=== PATIENT | male | born 1950 | race African-American/Black ===

== ENCOUNTER 2019-04-10 10:33 | Inpatient (IN) | payer BC ==
[~2019-04-10] VITALS: Ht 190.5 cm; Wt 98.1 kg
[2019-04-10] MEDS ORDERED: LORAZEPAM 1MG TABLET PO ONE (13:45)
[2019-04-10] MEDS ORDERED: SODIUM CHLORIDE 0.9% 1,000 ML IV ONE (13:45)
[2019-04-10 14:27] LABS: HEMATOCRIT. 37.2 % (42.0-52.0); HEMOGLOBIN. 12.4 g/dL (14.0-18.0); MEAN CORPUSCULAR HEMOGLOBIN 30.6 pg (28.0-32.0); MEAN CORPUSCULAR VOLUME 91.6 fL (80.0-94.0); MEAN PLATELET VOLUME 7.8 fl (7.4-10.4); PLATELET 247 x1000/uL (130-400); RED BLOOD CELL COUNT 4.06 mill/uL (4.7-6.1); RED CELL DISTRIBUTION WIDTH 14.3 % (11.6-14.6)
[2019-04-10 14:33] LABS: INR 1.2; PROTHROMBIN TIME 11.9 sec (9.6-11.0)
[2019-04-10 14:35] LABS: CHLORIDE 103 mEq/L (98-107)
[2019-04-10 14:43] LABS: ETHANOL BLOOD < 10 mg/dL
[2019-04-10 15:09] LABS: PLATELET ESTIMATE NORMAL
[2019-04-10 15:43] LABS: CLARITY URINE CLEAR (CLEAR); COLOR URINE YELLOW (YELLOW); KETONES URINE NEGATIVE (NEGATIVE); LEUKOCYTE ESTERASE URINE NEGATIVE (NEGATIVE); NITRITE URINE NEGATIVE (NEGATIVE); OCCULT BLOOD URINE NEGATIVE (NEGATIVE); PH URINE 5.5 (4.5-8.0); PROTEIN URINE NEGATIVE (NEGATIVE); SPECIFIC GRAVITY URINE 1.007 (1.005-1.030)
[2019-04-10 16:02] LABS: *AMPHETAMINES SCREEN URINE NEGATIVE (NEGATIVE); *BARBITURATES SCREEN URINE NEGATIVE (NEGATIVE); *BENZODIAZEPINES SCREEN URINE NEGATIVE (NEGATIVE)
[2019-04-10 16:04] LABS: *COCAINE SCREEN URINE NEGATIVE (NEGATIVE); CANNABINOID URINE SCREEN NEGATIVE (NEGATIVE); METHADONE URINE SCREEN NEGATIVE (NEGATIVE); OPIATES URINE SCREEN NEGATIVE (NEGATIVE); PHENCYCLIDINE URINE SCREEN NEGATIVE (NEGATIVE)
[2019-04-10] MEDS ORDERED: PIPERACILLIN/TAZ 3.375G PREMIX 50 ML IV ONE (17:15)
[2019-04-10 18:35] VITALS: BP 113/73
[2019-04-10 20:00] VITALS: BP 117/79
[2019-04-10] MEDS ORDERED: DOCUSATE SODIUM 100MG CAPSULE PO PRN (20:00)
[2019-04-10] MEDS ORDERED: LORAZEPAM 2MG/ML CPJ IV PRN (20:00)
[2019-04-10 20:08] VITALS: BP 117/73
[2019-04-10] MEDS ORDERED: INFLUENZA VIRUS VACCINE(AFLURIA) 0.5ML SYR IM ONE (20:15)
[2019-04-10] MEDS ORDERED: FAMOTIDINE 20MG TABLET PO SCH (21:00)
[2019-04-10] MEDS ORDERED: ENOXAPARIN 40MG/0.4ML SYR SUBCUT SCH (21:00)
[2019-04-10] MEDS: TAMSULOSIN HCL 0.4MG SR CAPSULE PO SCH (21:05)
[2019-04-10] MEDS: ACETAMINOPHEN 325MG TABLET PO PRN (21:41)
[2019-04-10] MEDS ORDERED: LEVOFLOXACIN 500MG PREMIX 100 ML IV NR (22:00)
[2019-04-10] MEDS ORDERED: FOLIC ACID 1 MG, THIAMINE HCL 100 MG, MVI, ADULT NO.1 10 ML in DEXTROSE 5% WATER 1,000 ML IV NR ×4 (22:00)
[2019-04-11] VITALS: BP 123/68
[2019-04-11 04:15] VITALS: BP 134/87
[2019-04-11 06:58] LABS: CHLORIDE 105 mEq/L (98-107)
[2019-04-11 07:17] LABS: HEMATOCRIT. 37.1 % (42.0-52.0); HEMOGLOBIN. 12.4 g/dL (14.0-18.0); MEAN CORPUSCULAR HEMOGLOBIN 30.3 pg (28.0-32.0); MEAN CORPUSCULAR VOLUME 90.5 fL (80.0-94.0); PLATELET 249 x1000/uL (130-400); RED CELL DISTRIBUTION WIDTH 14.2 % (11.6-14.6)
[2019-04-11 08:00] VITALS: BP 127/80
[2019-04-11 08:26] LABS: PLATELET ESTIMATE NORMAL
[2019-04-11] MEDS: TAMSULOSIN HCL 0.4MG SR CAPSULE PO SCH (09:07)
[2019-04-11 12:00] VITALS: BP 126/91
[2019-04-11] MEDS: ACETAMINOPHEN 325MG TABLET PO PRN ×2 (15:52→21:01)
[2019-04-11 16:00] VITALS: BP 141/82
[2019-04-11] MEDS ORDERED: THIAMINE HCL 100MG TABLET PO SCH (19:45)
[2019-04-11 20:00] VITALS: BP 137/77
[2019-04-11] MEDS ORDERED: LEVOFLOXACIN 250MG PREMIX 50 ML IV SCH (21:00)
== END 2019-04-11 21:15 | disposition short-term general hospital (02) | DRG 872 ==
LOC: ER 10:33 → 5WST 16:54 → ENRESERV 17:29
PROVIDERS: ADMIT Ophthalmology; ATTEND Ophthalmology
DX: A41.9 Sepsis, unspecified organism (principal); F10.239 Alcohol dependence with withdrawal, unspecified; G93.40 Encephalopathy, unspecified; N40.0 Benign prostatic hyperplasia without lower urinary tract symptoms; I10 Essential (primary) hypertension
CPT/HCPCS: 36415; 71045; 76700; 80048; 80305; 80320; 81003; 83605; 84145; 84484; 90686; 93005; 95816; 96365; 99291; J1650; J1956; J2543; J3411; J3490; J7030; J7040; J7070; G0480